=== PATIENT | male | born 1985 | race Caucasian/White ===

== ENCOUNTER 2017-09-11 11:13 | Emergency (ER) | payer OTHER ==
[~2017-09-11] VITALS: Ht 170.2 cm; Wt 61.2 kg
[2017-09-11] MEDS ORDERED: Percocet 5-3251 EACH PO (12:39)
[2017-09-11] MEDS ORDERED: Robaxin500 MG PO (12:39)
[2017-09-11] MEDS ORDERED: Voltaren100 GM TOP (12:39)
[2017-09-11] MEDS ORDERED: NAPR550 PO (12:39)
== END 2017-09-11 12:52 | disposition home or self-care (01) ==
LOC: ER 11:13
DX: M54.6 Pain in thoracic spine (principal); F17.200 Nicotine dependence, unspecified, uncomplicated; X50.9XXA Other and unspecified overexertion or strenuous movements or postures, initial encounter
CPT/HCPCS: 96372; 99283; J1885

== ENCOUNTER 2019-02-13 10:25 | Emergency (ER) | payer SELFPAY ==
[~2019-02-13] VITALS: Ht 170.2 cm; Wt 74.8 kg
[~2019-02-13 10:25] MED LIST: NAPR550 PO; Percocet 5-3251 EACH PO; Robaxin500 MG PO; Voltaren100 GM TOP
[2019-02-13] MEDS ORDERED: MONDOXYNE NL100 MG PO (11:02)
== END 2019-02-13 11:16 | disposition home or self-care (01) ==
LOC: ER 10:25
DX: J32.9 Chronic sinusitis, unspecified (principal); J30.2 Other seasonal allergic rhinitis; F17.200 Nicotine dependence, unspecified, uncomplicated
CPT/HCPCS: 99282

== ENCOUNTER 2022-06-12 11:40 | Emergency (ER) | payer OTHER ==
[~2022-06-12] VITALS: Ht 170.2 cm; Wt 83.9 kg
[~2022-06-12 11:40] MED LIST changes: +MONDOXYNE NL100 MG PO
[2022-06-12 13:27] LABS: Influenza A, PCR NEGATIVE (NEGATIVE); Influenza B, PCR NEGATIVE (NEGATIVE); Resp Syncytial Virus, PCR NEGATIVE (NEGATIVE); SARS-Cov-2 (COVID-19) PCR, MMC NEGATIVE (NEGATIVE)
[2022-06-12] MEDS ORDERED: KETO10 PO (13:51)
[2022-06-12] MEDS ORDERED: Flonase 0.05% N16 GM (13:51)
[2022-06-12] MEDS ORDERED: AMOCLA875 PO (13:51)
[2022-06-12] MEDS ORDERED: DEXT30SU PO (13:51)
== END 2022-06-12 14:00 | disposition home or self-care (01) ==
LOC: ER 11:40
PROVIDERS: Physician Assistant
DX: J32.9 Chronic sinusitis, unspecified (principal); Z20.822 Contact with and (suspected) exposure to COVID-19
CPT/HCPCS: 0241U; 99282

== ENCOUNTER 2023-07-24 11:39 | Emergency (ER) | payer OTHER ==
[~2023-07-24] VITALS: Ht 170.2 cm; Wt 69.4 kg
[~2023-07-24 11:39] MED LIST changes: +AMOCLA875 PO; +DEXT30SU PO; +Flonase 0.05% N16 GM; +KETO10 PO
[2023-07-24 12:15] VITALS: BP 154/103
[2023-07-24] MEDS ORDERED: Mupirocin22 GM TOP (15:36)
[2023-07-24] MEDS ORDERED: Bactrim Ds Tab1 EACH PO (15:36)
== END 2023-07-24 15:40 | disposition home or self-care (01) ==
LOC: ER 11:39
DX: S51.832A Puncture wound without foreign body of left forearm, initial encounter (principal); F17.210 Nicotine dependence, cigarettes, uncomplicated; W45.8XXA Other foreign body or object entering through skin, initial encounter
CPT/HCPCS: 90471; 90714; 99282-25